=== PATIENT | male | born 1960 | race Caucasian/White ===

== ENCOUNTER 2022-03-22 09:38 | Outpatient (CLI) | payer OTHER, SELFPAY | END 2022-03-22 09:39 | disposition home or self-care (01) | PROVIDERS: PCP Family Medicine; Visit Provider Family Medicine | DX: M51.36 Other intervertebral disc degeneration, lumbar region (principal); M54.16 Radiculopathy, lumbar region | CPT/HCPCS: 62323; J0702; Q9966 ==

== ENCOUNTER 2023-08-11 08:13 | Outpatient (CLI) | payer OTHER, SELFPAY | END 2023-08-11 08:14 | disposition home or self-care (01) | LOC: INJ CL 08:14 | PROVIDERS: PCP Family Medicine; Visit Provider Family Medicine | DX: M54.16 Radiculopathy, lumbar region (principal); M51.36 Other intervertebral disc degeneration, lumbar region | CPT/HCPCS: 62323; J0702; Q9966 ==

== ENCOUNTER 2023-08-29 11:20 | Outpatient (CLI) | payer OTHER, SELFPAY | END 2023-08-29 11:21 | disposition home or self-care (01) | LOC: INJ CL 11:20 | PROVIDERS: PCP Family Medicine; Visit Provider Family Medicine | DX: M47.816 Spondylosis without myelopathy or radiculopathy, lumbar region (principal) | CPT/HCPCS: 64493; 64494; J0702; Q9966 ==